=== PATIENT | male | born 1940 | race Caucasian/White ===

== ENCOUNTER 2016-04-23 11:06 | Outpatient (CLI) | payer BC, MEDICARE ==
[2016-04-23 13:02] LABS: CHOLESTEROL 383 mg/dL (<200); HDL CHOLESTEROL 37 mg/dL (40-60); LDL 295 mg/dL (0-99); TRIGLYCERIDES 159 mg/dL (30-150)
== END 2016-04-23 23:59 | disposition home or self-care (01) ==
LOC: LAB 11:06
PROVIDERS: ATTEND Internal Medicine Cardiovascular Disease
DX: E78.5 Hyperlipidemia, unspecified (principal)
CPT/HCPCS: 36415; 80061-TC

== ENCOUNTER 2016-10-14 11:00 | Outpatient (CLI) | payer BC, MEDICARE ==
[2016-10-14 11:35] LABS: CHOLESTEROL 168 mg/dL (<200); HDL CHOLESTEROL 50 mg/dL (40-60); LDL 104 mg/dL (0-99); TRIGLYCERIDES 62 mg/dL (30-150)
[2016-10-14 11:37] LABS: ALANINE AMINOTRANSFERASE 28 U/L (12-78); ALBUMIN 3.6 g/dL (3.4-5.0); ALKALINE PHOSPHATASE 32 U/L (46-116); ASPARTATE AMINOTRANSFERASE 15 U/L (15-37); BILIRUBIN,TOTAL 0.5 mg/dL (0.2-1.0); CALCIUM, SERUM 8.5 mg/dL (8.5-10.1); CARBON DIOXIDE 30 mmol/L (21-32); CHLORIDE 108 mmol/L (98-107); CREATININE 1.2 mg/dL (0.6-1.3); GLUCOSE 99 mg/dL (74-106); POTASSIUM 4.3 mmol/L (3.5-5.1); SODIUM SERUM 144 mmol/L (136-145); TOTAL PROTEIN, SERUM 7.3 g/dL (6.4-8.2); UREA NITROGEN, BLOOD 20 mg/dL (7-18)
== END 2016-10-14 23:59 | disposition home or self-care (01) ==
LOC: LAB 11:00
PROVIDERS: ATTEND Internal Medicine Cardiovascular Disease
DX: I10 Essential (primary) hypertension (principal); E78.5 Hyperlipidemia, unspecified
CPT/HCPCS: 36415; 80053-TC; 80061-TC